=== PATIENT | male | born 1995 | race Caucasian/White ===

== ENCOUNTER 2021-01-14 21:40 | Emergency (ER) | payer SELFPAY ==
[~2021-01-14] VITALS: Ht 182.9 cm; Wt 120.8 kg
[2021-01-14] MEDS ORDERED: NS 1,000 ML IV ONE (21:55)
[2021-01-14 21:59] LABS: BASO # 0.1 10^3/uL (0.0-0.2); BASO % 0.4 % (0.0-1.0); EOS # 0.1 10^3/uL (0.0-0.5); EOS % 0.9 % (0.0-3.0); HEMATOCRIT 47.3 % (42.0-52.0); HEMOGLOBIN 16.3 g/dl (13.5-17.5); LYMPH # 3.2 10^3/uL (1.5-5.0); LYMPH % 21.7 % (24.0-44.0); MEAN CORPUSCULAR HEMOGLOBIN 29.9 pg (27.0-33.0); MEAN CORPUSCULAR HGB CONC 34.5 g/dl (32.0-36.5); MEAN CORPUSCULAR VOLUME 86.8 fl (80.0-96.0); MONO # 0.8 10^3/uL (0.0-0.8); MONO % 5.6 % (2.0-8.0); NEUTROPHILS # 10.5 10^3/uL (1.5-8.5); NEUTROPHILS % 70.3 % (36.0-66.0); PLATELET COUNT, AUTOMATED 222 10^3/uL (150-450); RED BLOOD COUNT 5.45 10^6/uL (4.30-6.10); WHITE BLOOD COUNT 14.9 10^3/uL (4.0-10.0)
[2021-01-14 22:19] LABS: ALBUMIN 4.3 GM/DL (3.2-5.2); ALT/SGPT 49 U/L (12-78); BILIRUBIN,DIRECT < 0.1 MG/DL (0.0-0.2); BILIRUBIN,TOTAL 0.2 MG/DL (0.2-1.0); BLOOD UREA NITROGEN 11 MG/DL (7-18); CALCIUM LEVEL 8.6 MG/DL (8.5-10.1); CARBON DIOXIDE LEVEL 23 MEQ/L (21-32); CHLORIDE LEVEL 110 MEQ/L (98-107); CPK CREATINE PHOSPHOKINASE 446 U/L (39-308); CREATININE FOR GFR 1.06 MG/DL (0.70-1.30); ETHYL ALCOHOL (ETHANOL) 0.245 % (0.000-0.010); GLOMERULAR FILTRATION RATE > 60.0 (>60); GLUCOSE, FASTING 120 MG/DL (70-100); MB/CK RELATIVE INDEX 0.45 (< OR =4); POTASSIUM SERUM 3.6 MEQ/L (3.5-5.1); SODIUM LEVEL 143 MEQ/L (136-145); TOTAL PROTEIN 7.8 GM/DL (6.4-8.2); TROPONIN I < 0.02 NG/ML (< 0.10)
[2021-01-14] MEDS ORDERED: ISOVUE-370 76% 100ML VIAL As Ordered ONE (22:23)
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
[2021-01-14 23:30] VITALS: BP 148/72
--- NOTE | 2021-01-15 21:25 | ECGEPIP ---
[facility] - ED Test Date: 2021-01-14 Pat Name: ALCIRA FLORES Department: Room: - Gender: Male Special Education Aide: : 1995 Requested By: MIRIAN Canales Order Number: [id number] Reading MD: Elzbieta Benedict Measurements Intervals [place] Rate: 112 P: 51 WI: 150 QRS: 57 QRSD: 84 T: 2 QT: 324 QTc: 442 Interpretive Statements Sinus tachycardia NSTTW abnormalities No prior Electronically Signed on 01-15-2021 21:24:40 EDT by Elzbieta Benedict
== END 2021-01-15 01:15 | disposition home or self-care (01) ==
LOC: EDBD 21:40 → M ED 21:40
DX: Z04.1 Encounter for examination and observation following transport accident (principal); V48.5XXA Car driver injured in noncollision transport accident in traffic accident, initial encounter; F10.129 Alcohol abuse with intoxication, unspecified; R00.0 Tachycardia, unspecified
CPT/HCPCS: 70450; 71260; 72125; 74177; 80048; 80076; 82077; 82550; 82553; 84484; 85025; 93005; 93041; 94760; 96360; 99285; Q9967

== ENCOUNTER 2021-01-15 16:03 | Inpatient (IN) | payer OTHER, SELFPAY ==
[~2021-01-15] VITALS: Ht 182.9 cm; Wt 122.0 kg
[2021-01-15] MEDS ORDERED: NS 1,000 ML IV ONE (16:35)
[2021-01-15] MEDS ORDERED: BOOSTRIX/ADACEL VACCINE (DIPHTH/PERTUSS/ACELL/TETANUS) 0.5ML SYR IM ONE (16:40)
[2021-01-15] MEDS ORDERED: ISOVUE-370 76% 100ML VIAL As Ordered ONE (16:47)
[2021-01-15 16:48] LABS: BASO # 0.1 10^3/uL (0.0-0.2); BASO % 0.2 % (0.0-1.0); EOS % 0.1 % (0.0-3.0); HEMATOCRIT 44.1 % (42.0-52.0); LYMPH # 2.8 10^3/uL (1.5-5.0); LYMPH % 11.9 % (24.0-44.0); MEAN CORPUSCULAR HEMOGLOBIN 30.2 pg (27.0-33.0); MEAN CORPUSCULAR VOLUME 88.9 fl (80.0-96.0); MONO # 1.8 10^3/uL (0.0-0.8); MONO % 7.5 % (2.0-8.0); NEUTROPHILS # 18.6 10^3/uL (1.5-8.5); NEUTROPHILS % 79.5 % (36.0-66.0); PLATELET COUNT, AUTOMATED 239 10^3/uL (150-450); RED BLOOD COUNT 4.96 10^6/uL (4.30-6.10); WHITE BLOOD COUNT 23.4 10^3/uL (4.0-10.0)
[2021-01-15 17:12] LABS: INR 1.05; PARTIAL THROMBOPLASTIN TIME 27.3 SECONDS (24.2-38.5); PROTHROMBIN TIME 13.9 SECONDS (12.5-14.3)
--- NOTE | 2021-01-15 17:21 | REP ---
INDICATION: pain. COMPARISON: None. TECHNIQUE: Four views of the right femur are provided. FINDINGS: Four views of the right femur demonstrate normal bones, joints, and soft tissues. No fracture or subluxation is seen. No opaque foreign body noted. IMPRESSION: Negative right femur series. <Electronically signed by Shubham Encarnacion > 01/15/21 [id number]
--- NOTE | 2021-01-15 17:22 | REP ---
INDICATION: pain. COMPARISON: None. TECHNIQUE: Three views of the right calf are provided. FINDINGS: Three views of the right calf demonstrate diffuse soft tissue swelling about the knee medially laterally and extending posteriorly into the calf subcutaneous region.. No fracture or subluxation is seen. No opaque foreign body noted. IMPRESSION: No fracture seen. Diffuse soft tissue swelling about the knee and proximal calf.. <Electronically signed by Shubham Encarnacion > 01/15/21 [id number]
--- NOTE | 2021-01-15 17:23 | REP ---
INDICATION: pain. COMPARISON: None. TECHNIQUE: Bilateral knee series: Total of 8 views. FINDINGS: Four views of each knee are provided. There is no evidence of fracture or subluxation. There is soft tissue swelling about the right knee and proximal calf. Overall mineralization pattern is normal. IMPRESSION: No fracture seen. Soft tissue swelling about the right knee.. <Electronically signed by Shubham Encarnacion > 01/15/21 [id number]
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
[2021-01-15] MEDS ORDERED: PERCOCET 5MG/325MG TAB PO PRN ×2 (19:30)
[2021-01-15] MEDS ORDERED: LR 1,000 ML IV SCH (19:30)
[2021-01-15] MEDS ORDERED: ONDANSETRON 4MG/2ML VIAL IV PRN (19:30)
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
[2021-01-15 21:40] LABS: RSV AMPLIFICATION NEGATIVE (NEGATIVE)
[2021-01-16] VITALS: BP 111/79
[2021-01-16] MEDS: KETOROLAC 30 MG/ML 1ML VIAL IV PRN ×2 (04:25→21:55)
[2021-01-16 06:00] VITALS: BP 137/81
[2021-01-16 06:23] LABS: BASO % 0.2 % (0.0-1.0); EOS # 0.1 10^3/uL (0.0-0.5); EOS % 0.5 % (0.0-3.0); HEMATOCRIT 37.4 % (42.0-52.0); HEMOGLOBIN 12.4 g/dl (13.5-17.5); LYMPH # 2.2 10^3/uL (1.5-5.0); LYMPH % 14.8 % (24.0-44.0); MEAN CORPUSCULAR HEMOGLOBIN 29.9 pg (27.0-33.0); MEAN CORPUSCULAR HGB CONC 33.2 g/dl (32.0-36.5); MEAN CORPUSCULAR VOLUME 90.1 fl (80.0-96.0); MONO # 1.9 10^3/uL (0.0-0.8); MONO % 12.8 % (2.0-8.0); NEUTROPHILS # 10.5 10^3/uL (1.5-8.5); NEUTROPHILS % 70.7 % (36.0-66.0); PLATELET COUNT, AUTOMATED 185 10^3/uL (150-450); RED BLOOD COUNT 4.15 10^6/uL (4.30-6.10); WHITE BLOOD COUNT 14.9 10^3/uL (4.0-10.0)
[2021-01-16 06:40] LABS: BLOOD UREA NITROGEN 10 MG/DL (7-18); CALCIUM LEVEL 8.4 MG/DL (8.5-10.1); CARBON DIOXIDE LEVEL 27 MEQ/L (21-32); CHLORIDE LEVEL 106 MEQ/L (98-107); CREATININE FOR GFR 0.94 MG/DL (0.70-1.30); GLOMERULAR FILTRATION RATE > 60.0 (>60); GLUCOSE, FASTING 101 MG/DL (70-100); POTASSIUM SERUM 4.2 MEQ/L (3.5-5.1); SODIUM LEVEL 140 MEQ/L (136-145)
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
[2021-01-16 14:00] VITALS: BP 159/100
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
[2021-01-16 22:00] VITALS: BP 163/93
[2021-01-16 22:05] VITALS: BP 122/60
[2021-01-17 06:58] VITALS: BP 141/80
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
== END 2021-01-17 11:10 | disposition home or self-care (01) | DRG 384 ==
LOC: M ED 16:03 → M ED INP 19:26 → M MS5PR 23:15
PROVIDERS: ADMIT Surgery; ATTEND Surgery
DX: S80.11XA Contusion of right lower leg, initial encounter (principal); V48.5XXA Car driver injured in noncollision transport accident in traffic accident, initial encounter

== ENCOUNTER 2022-10-03 18:40 | Emergency (ER) | payer OTHER ==
[~2022-10-03] VITALS: Ht 182.9 cm; Wt 128.4 kg
[2022-10-03] MEDS ORDERED: ALBUTEROL SULFATE 2.5MG/0.5ML INH NEB SOLN NEB ONE (20:45)
[2022-10-03] MEDS ORDERED: ALBU6.7H6 INH (21:19)
[2022-10-03 21:35] VITALS: BP 142/93
== END 2022-10-03 21:55 | disposition left against medical advice (07) ==
LOC: M ED 18:40
DX: Z53.21 Procedure and treatment not carried out due to patient leaving prior to being seen by health care provider (principal)